=== PATIENT | female | born 1970 | race Caucasian/White ===

== ENCOUNTER 2020-07-29 02:35 | Emergency (ER) | payer BC, OTHER ==
[2020-07-29] MEDS ORDERED: traMADol HCl 50 MG TAB ONE (03:01)
[2020-07-29] MEDS ORDERED: Ketorolac Tromethamine 60 MG/2 ML VIAL ONE (03:02)
[2020-07-29] MEDS ORDERED: Ondansetron ODT 4 MG TAB ONE (03:02)
--- NOTE | 2020-07-29 08:26 | CT ---
PRELIMINARY REPORT/[facility]/EMERGENCY AFTER HOURS PROCEDURE: Receipt of this report by the clinical staff was confirmed with Myra Cabrera RN by Carmella Olsen on Jul 29, 2020 04:20:00 CDT. Addendum electronically signed by Carmella Olsen on July 29, 2020 4:19:16 AM CDT EXAM: CT Lumbar Spine Without Intravenous Contrast. CLINICAL HISTORY: The patient fell in the bathroom yesterday (07-28) in the morning, and hurt her back . The patient tried to see if it would get better throughout the day, but continued to have pain. The patient does not recall exactly how she landed, but has had pain in the lower back, and right Sac roiliac area. Denies other injuries from the fall. TECHNIQUE: Axial computed tomography images of the lumbar spine without intravenous contrast. Sagitta l and coronal reformations performed. COMPARISON: CT - CT PELVIS WO 07/29/2020 03:24 AM CDT FINDINGS: BONES: There is a compression deformity of the superior aspect of the L1 vertebral body with approxim ately 33% height loss. This is age indeterminate. There is an acute appearing compression fracture of the superior aspect of the L2 vertebral body with approximately 25% height loss. No retorpulsed fragments are seen. DISCS/DEGENERATIVE CHANGES: No significant disc or facet degeneration. No significant central canal or neural foraminal stenosis. SOFT TISSUES: The paraspinal soft tissues are unremarkable. IMPRESSION: Acute compression fracture of the superior aspect of the L2 vertebral body with approxima tely 25% height loss. No retorpulsed fragments are seen. Age indeterminate compression deformity of the superior aspect of the L1 vertebral body, possibly acute, with approximately 33% height loss. ELECTRONICALLY SIGNED BY: Dixon Damian MD Jul 29, 2020 4:12:06 AM CDT FINAL REPORT EMERGENT AFTER HOURS NONCONTRAST CT LUMBAR SPINE: HISTORY: Injury after falling in bathroom one day ago. Persistent low back pain. COMPARISON: None. IMPRESSION: 1. Recent appearing compression fracture involving the superior endplate of the L2 vertebral bodies w ith slight separation of fracture fragments involving the anterior superior endplate. 2. Indeterminate age mild compression fracture involving the superior endplate L1 vertebral body grea ter centrally. 3. No evidence of subluxation. 4. No high-grade central canal or neural foraminal narrowing. 5. Left convex curvature lumbar spine. 6. Findings are in agreement with preliminary report by [facility]. Transcribed Date/Time: 07/29/2020 9:05 AM
--- NOTE | 2020-07-29 08:29 | CT ---
PRELIMINARY REPORT/[facility]/EMERGENCY AFTER HOURS PROCEDURE: EXAM: CT Pelvis Without Intravenous Contrast. CLINICAL HISTORY: The patient fell in the bathroom yesterday (919) in the morning, and hurt her back . The patient tried to see if it would get better throughout the day, but continued to have pain. The patient does not recall exactly how she landed, but has had pain in the lower back, and right Sac roiliac area. Denies other injuries from the fall. Tried using Tylenol throughout the day, but did not seem to help. Last dose was at 10 pm. TECHNIQUE: Axial computed tomography images of the pelvis without intravenous contrast. CONTRAST: None. COMPARISON: CT - CT LUMBAR SPINE WO CON - 07/29/2020 03:16 AM CDT FINDINGS: HIP JOINTS: No dislocation. The joint spaces are normal. BONES: No acute fracture or focal osseous lesion. No suspicious focal osseous lesions. SOFT TISSUES: The pelvic viscera are unremarkable. No fluid collection, hematoma or mass. No radiopaq ue foreign body or soft tissue gas. IMPRESSION: No acute abnormality. ELECTRONICALLY SIGNED BY: Dixon Damian MD Jul 29, 2020 4:06:04 AM CDT FINAL REPORT EMERGENT AFTER HOURS NONCONTRAST CT PELVIS: HISTORY: Injury after falling in bathroom one day ago. Low back pain and pain right sacroiliac joint. COMPARISON: None. IMPRESSION: 1. No evidence of a fracture or acute findings involving the pelvis. 2. Hypodense cystic lesion left ovary measuring approximately 2 cm likely related to a small cyst. 3. Findings are in agreement with preliminary report by [facility]. Transcribed Date/Time: 07/29/2020 9:17 AM
== END 2020-07-29 04:40 | disposition home or self-care (01) ==
LOC: NAV ERS 02:35
DX: S32.020A Wedge compression fracture of second lumbar vertebra, initial encounter for closed fracture (principal); S32.010A Wedge compression fracture of first lumbar vertebra, initial encounter for closed fracture; W19.XXXA Unspecified fall, initial encounter; Y92.89 Other specified places as the place of occurrence of the external cause
CPT/HCPCS: 72131; 72192; 96372; J1885; Q0162